=== PATIENT | female | born 1985 | race Asian ===

== ENCOUNTER 2019-11-01 10:30 | Outpatient (CLI) | payer BC, OTHER ==
[~2019-11-01] VITALS: Ht 157.5 cm; Wt 69.5 kg
[2019-11-01 10:34] VITALS: BP 110/67
[2019-11-01] MEDS ORDERED: CETI10CA PO (10:40)
[2019-11-01] MEDS ORDERED: PREN1TAB62 PO (10:40)
== END 2019-11-01 10:58 | disposition home or self-care (01) ==
LOC: LDOP 10:30
PROVIDERS: ATTEND Obstetrics & Gynecology
DX: O36.8120 Decreased fetal movements, second trimester, not applicable or unspecified (principal); Z3A.25 25 weeks gestation of pregnancy
CPT/HCPCS: 99201; G0463

== ENCOUNTER 2019-12-11 21:00 | Outpatient (CLI) | payer OTHER ==
[~2019-12-11] VITALS: Ht 157.5 cm; Wt 79.1 kg
[~2019-12-11 21:00] MED LIST: CETI10CA PO; PREN1TAB62 PO
== END 2019-12-11 22:30 | disposition home or self-care (01) ==
LOC: LDOP 21:00 → UNDODISOB 22:30 → EDSTATUS 12-12 05:56
PROVIDERS: ATTEND Obstetrics & Gynecology
DX: O42.913 Preterm premature rupture of membranes, unspecified as to length of time between rupture and onset of labor, third trimester (principal); Z3A.31 31 weeks gestation of pregnancy
CPT/HCPCS: 59025; 84112; G0378